=== PATIENT | male | born 1955 | race Two or more races ===

== ENCOUNTER 2024-02-15 20:57 | Inpatient (IN) | payer MEDICARE, MEDICAID, SELFPAY ==
[2024-02-15 21:17] VITALS: BMI 26.2
[2024-02-15 21:33] VITALS: BP 128/75; PULSE 90; RESP 18; TEMP 36.4; O2SAT 98
[2024-02-15 21:58] LABS: Basophils % (Auto) 1 % (0-2.5); Eosinophils # (Auto) 0.3 Thou/mm3 (0.0-0.5); Eosinophils % (Auto) 5 % (0-10); Hematocrit 23.5 % (41.0-53.0); Immature Granulocytes % (Auto) 0 % (0-0); Immature Granulocytes Auto 0.01 Thou/mm3 (0.00-0.00); Lymphocytes # (Auto) 1.5 Thou/mm3 (1.0-4.8); Lymphocytes % (Auto) 25 % (10-50); Mean Corpuscular Hemoglobin 31.3 pg (25.0-35.0); Mean Corpuscular Volume 92 fL (80-100); Monocytes # (Auto) 0.6 Thou/mm3 (0.0-0.8); Monocytes % (Auto) 10 % (0-12); Neutrophils # (Auto) 3.5 Thou/mm3 (1.8-7.7); Neutrophils % (Auto) 60 % (37-80); Nucleated Red Blood Cell % 0 /100 WBC (0); Platelet Count 143 Thou/mm3 (140-440); RDW Standard Deviation 44.1 fL (35.1-43.9); Red Blood Count 2.56 Miln/mm3 (4.50-5.90); White Blood Count 5.9 Thou/mm3 (3.8-10.6)
[2024-02-15 22:22] LABS: Alanine Aminotransferase 40 U/L (10-49); Albumin, Serum 3.6 gm/dL (3.4-4.8); Albumin/Globulin Ratio 1.5 (1.2-2.2); Alkaline Phosphatase 67 U/L (46-116); Anion Gap 4 (7-16); Aspartate Amino Transferase 35 U/L (0-34); BUN/Creatinine Ratio 23 Ratio (12-20); Bilirubin,Total 0.3 mg/dL (0.3-1.2); Blood Urea Nitrogen 28 mg/dL (9-23); Calcium 8.8 mg/dL (8.3-10.6); Calcium (Corrected) 9.1 mg/dL (8.5-10.1); Carbon Dioxide 25.9 mMol/L (20.0-31.0); Chloride 105 mMol/L (98-107); Creatinine (Component) 1.2 mg/dL (0.6-1.3); Globulin 2.4 gm/dL (2.3-3.5); Glucose 219 mg/dL (74-106); Magnesium 2.2 mg/dL (1.6-2.6); Osmolality,Calculated 282 (275-295); Potassium 4.4 mMol/L (3.4-5.1); Sodium 135 mMol/L (136-145); eGFR > 60 See Note
--- NOTE | 2024-02-15 23:16 | PC.NURSE ---
Dr. Mccormack made aware that the patient transferred from [facility] has safely arrived on [facility] Room 368.
[2024-02-15 23:52] VITALS: BP 123/70; PULSE 85; RESP 18; TEMP 36.3; O2SAT 98
[2024-02-16] VITALS (8 sets, daily range): BP systolic 96–148; BP diastolic 65–83; PULSE 82–89; RESP 15–98; TEMP 36.1–37.1; O2SAT 95–100
--- NOTE | 2024-02-16 05:21 | ESHP_ITS ---
Documentation for date of: 02/16/24 [facility] History of Present Illness History of present illness: Luis Enrique Montalvo is a 68-year-old male with a past medical history of insulin- dependent diabetes mellitus and hyperlipidemia who is transferred back from [facility] after falling from ladder. Patient scented to [facility] ED on 02/12 after falling from a 10 foot ladder while cutting a tree and was found to have multiple rib fractures and flail chest, but no evidence of pleural effusion or pneumothorax. Also noted to have right iliac bone with hemorrhage in the right iliac muscle and right scapular fracture. Decision was made to transfer patient to [facility], and upon their evaluation, ortho (Dr. King) decided to treat with closed management. They recommended 25% weightbearing on right lower extremity and follow-up in 4 weeks outpatient to evaluate healing. No acute events noted at [facility], hemoglobin was trended and remained stable and serial abdominal exams performed within normal limits. PMHx: as noted above Medications: Empagliflozin, ezetimibe, glimepiride, lisinopril, rosuvastatin SHx: denies smoking, alcohol, illicit drug use Review of Systems Review of Systems Systems Reviewed: All systems reviewed, normal except as documented Exam Vital Signs Temp Pulse Resp BP Pulse Ox O2 Del Method 96.9 F 86 18 96/65 100 Room Air 02/16/24 04:00 02/16/24 04:00 02/16/24 04:00 02/16/24 04:00 02/16/24 04:00 02/16/24 04:00 Narrative Exam General: AOx3, no acute distress, able to speak full sentences HEENT: NC/AT, mucous membranes moist, bilateral sclera anicteric Cardiovascular: regular rate and rhythm, S1/S2 present, no murmurs appreciated Pulmonary: clear to auscultation bilaterally, no rales/rhonchi/wheezes Abdominal: soft, non-tender, non-distended, no rebound/guarding, normal bowel sounds present Musculoskeletal: RUE in sling, abdominal binder noted Skin: warm and dry, intact, no rashes Neuro: CN II-XII intact, no focal deficits Results: Labs 02/17/24 04:53 02/16/24 08:32 Labs: Short CBC 02/15/24 Range/Units 21:36 WBC 5.9 D (3.8-10.6) Thou/mm3 Hgb 8.0 L D (13.5-16.0) g/dL Hct 23.5 L D (41.0-53.0) % Plt Count 143 D (140-440) Thou/mm3 BMP 02/15/24 21:36 Sodium 135 L Potassium 4.4 Chloride 105 Carbon Dioxide 25.9 BUN 28 H Creatinine 1.2 D Glucose 219 H D Calcium 8.8 Liver Function 02/15/24 Range/Units 21:36 Total Bilirubin 0.3 (0.3-1.2) mg/dL AST 35 H (0-34) U/L ALT 40 (10-49) U/L Alkaline Phosphatase 67 D (46-116) U/L Albumin 3.6 D (3.4-4.8) gm/dL Quality Measures Quality Measures VTE prophylaxis Advance care planning discussed with:: patient Medications Home Medications and Allergies Home Medications ?Medication ?Instructions ?Recorded ?Confirmed ?Type ezetimibe 10 mg tablet 10 mg PO DAILY 02/13/24 02/16/24 History lisinopril 2.5 mg tablet 2.5 mg PO DAILY 02/13/24 02/16/24 History Allergies Allergy/AdvReac Type Severity Reaction Status Date / Time No Known Allergies Allergy Verified 02/13/24 14:17 Visit Medications Oxycodone/Acetaminophen (Oxycodone/Apap 5/325 Tablet) 1 tab PO Q6HR PRN PRN Reason: PAIN SCALE 4-6 (Moderate Stop: 02/20/24 21:47 Oxycodone/Acetaminophen (Oxycodone/Apap 5/325 Tablet) 2 tab PO Q6HR PRN PRN Reason: PAIN SCALE 7-10 (Severe Stop: 02/20/24 21:48 Assessment & Plan Plan Luis Enrique Montalvo is a 68-year-old male with a past medical history of insulin- dependent diabetes mellitus and hyperlipidemia who is transferred back from [facility] and admitted for physical therapy evaluation and continuous management of rib, acetabular, and scapular fractures. #Closed right scapular fracture #Acetabular fracture #Closed fracture of iliac crest #Multiple fractured ribs #Fracture of lumbar spine ? Orthopedic surgery consulted, appreciate recommendations ? Physical therapy ? Pain management: Percocet 1 tablet for moderate pain, 2 tablets for severe pain #Type 2 diabetes mellitus, insulin-dependent ? SSI ? Home Lantus 20 units qAM ? Follow-up A1c in AM #Hyperlipidemia ? Rosuvastatin ? Follow-up lipid panel #Hypertension Blood pressure borderline, lisinopril deferred. Monitor vitals closely and resume as needed. Hospital management: Disposition: med surg Fluids: none Diet: carb consistent Lines: peripheral DVT prophylaxis: SCDs to avoid bleeding GI prophylaxis: PPI Guy: not indicated CODE STATUS: DNR ----- Plan discussed with attending physician Dr. Gilbert Mccormack MD PGY-1 Internal Medicine Attending Provider Attestation/Addendum I reviewed labs, imaging, EKG, home medications and prior available records. Face to face evaluation was performed by me. I have personally examined the patient and discussed assessment and plan with the IM team. I reviewed the resident note and agree with the plan with exceptions as below. 68-year-old male with history of diabetes type 2 who presented after a fall from ladder. He was found to have a closed fracture multiple ribs, closed pelvic fracture, fracture of lumbosacral spine. He was admitted to [facility] for trauma service. He was transferred to [facility] for care continuation. Fall from ladder/closed fracture of multiple ribs/closed pelvic fracture/fracture of unspecific parts of lumbosacral spine and pelvis: Patient has right scapular fracture, fracture of the right 2nd-6th ribs, retroperitoneal hematoma that is inferior to the right kidney, commuted right iliac fracture, pelvic floor musculature hemorrhage, right L2-L3 TP fracture, and anterior right acetabular fracture. No decision to operate was made. Consult PT. Continue pain management as needed. Insulin-dependent diabetes mellitus: Type II. Resume home insulin plus sliding scale. Monitor fingersticks.
[2024-02-16] MEDS: INSULIN GLARGINE (Lantus) 5 UNIT/0.05 ML (PER 5 UNITS) 20 UNIT SC (08:11)
[2024-02-16] MEDS: INSULIN LISPRO (AdmeLOG) 1 UNIT/0.01 ML UNIT SC ×4 (08:12→20:51)
[2024-02-16] MEDS: ACETAMINOPHEN 325 MG TABLET 650 MG PO (08:12)
[2024-02-16] MEDS: PANTOPRAZOLE 40 MG TABLET PO (08:13)
[2024-02-16] MEDS: SENNA TABLET 1 TAB PO (08:13)
--- NOTE | 2024-02-16 09:00 | PC.NURSE ---
pt does not currently have an IV, per Dr. Guy at bedside, it is OK to not place an IV on pt, pt to discharge later today.
[2024-02-16 09:13] LABS: Basophils % (Auto) 1 % (0-2.5); Eosinophils # (Auto) 0.3 Thou/mm3 (0.0-0.5); Eosinophils % (Auto) 6 % (0-10); Immature Granulocytes % (Auto) 0 % (0-0); Immature Granulocytes Auto 0.01 Thou/mm3 (0.00-0.00); Lymphocytes # (Auto) 1.3 Thou/mm3 (1.0-4.8); Lymphocytes % (Auto) 26 % (10-50); Mean Corpuscular HGB Conc 34.3 g/dl (31.0-37.0); Mean Corpuscular Hemoglobin 31.3 pg (25.0-35.0); Mean Corpuscular Volume 91 fL (80-100); Monocytes # (Auto) 0.5 Thou/mm3 (0.0-0.8); Monocytes % (Auto) 9 % (0-12); Neutrophils % (Auto) 58 % (37-80); Nucleated Red Blood Cell % 0 /100 WBC (0); Platelet Count 140 Thou/mm3 (140-440); RDW Standard Deviation 43.8 fL (35.1-43.9); Red Blood Count 2.52 Miln/mm3 (4.50-5.90); White Blood Count 5.1 Thou/mm3 (3.8-10.6)
[2024-02-16 09:42] LABS: Hemoglobin 7.9 g/dL (13.5-16.0)
[2024-02-16 10:10] LABS: Alanine Aminotransferase 36 U/L (10-49); Albumin, Serum 3.6 gm/dL (3.4-4.8); Albumin/Globulin Ratio 1.5 (1.2-2.2); Alkaline Phosphatase 65 U/L (46-116); Anion Gap 4 (7-16); Aspartate Amino Transferase 32 U/L (0-34); BUN/Creatinine Ratio 25 Ratio (12-20); Blood Urea Nitrogen 27 mg/dL (9-23); Calcium 8.8 mg/dL (8.3-10.6); Calcium (Corrected) 9.1 mg/dL (8.5-10.1); Carbon Dioxide 25.6 mMol/L (20.0-31.0); Chloride 105 mMol/L (98-107); Creatinine (Component) 1.1 mg/dL (0.6-1.3); Estimated Creatinine Clearance 56.7 mL/min (>60); Globulin 2.4 gm/dL (2.3-3.5); Glucose 263 mg/dL (74-106); Osmolality,Calculated 284 (275-295); Phosphorous 3.5 mg/dL (2.4-5.1); Potassium 4.6 mMol/L (3.4-5.1); Sodium 135 mMol/L (136-145); eGFR > 60 See Note
[2024-02-16] MEDS: oxyCODONE/APAP 5/325 TABLET 1 TAB PO ×3 (10:11→23:48)
--- NOTE | 2024-02-16 11:35 | ESPR_ITS ---
<Statement entered by Joanie Castano DO - 02/16/24 21:49> Senior attestation: Patient was examined and case was reviewed with team including attending physician. Note reviewed, I agree with most of its contents and agree with the patient's care. Will continue to monitor patient today to assess hemoglobin stability. Physical therapy team has evaluated patient, orthopedic surgeon Dr. Padilla has also been consulted. Anticipate discharge in 24-48 hours pending clinical stability. Joanie Castano DO PGY-3 Documentation for date of: 02/16/24 Subjective Subjective Interval history: No acute overnight events. Patient seen and examined at bedside. He explained that he fell a few days ago while he was trying to cut a branch from his trip. Upon falling, he landed on his right side of his body. He immediately came into the ED. ED transfer patient to [facility], for higher level care. He was answered back to [facility] for further management. Who presents with limited range of motion in the right lower extremities upper right upper extremity he is able to lift his right arm at 90 degrees, unable to lift beyond his shoulder level. Patient denies headache, fever, chills, chest pain, palpitation, shortness of breath, dizziness, nausea, vomiting, diarrhea, or constipation. Dr. King orthopedic surgeon recommended 25% weightbearing and physical therapy followed by follow-up outpatient setting in 4 weeks. Night team consulted orthopedic surgeon at [facility] who recommends to follow-up with orthopedic surgeon at [facility] trauma center recommendations. Continue Tylenol and Percocet as needed for pain, physical therapy and 25% weightbearing. Exam Vital Signs Temp Pulse Resp BP Pulse Ox O2 Del Method 97.9 F 86 15 132/69 H 95 Room Air 02/16/24 07:55 02/16/24 07:55 02/16/24 07:55 02/16/24 07:55 02/16/24 07:55 02/16/24 04:00 Narrative Exam General: Monegasque-speaking gentleman, in no acute distress, seen with sling on flexed right arm. HEENT: NC/AT, mucous membranes moist, bilateral sclera anicteric Cardiovascular: regular rate and rhythm, S1/S2 present, no murmurs appreciated Pulmonary: clear to auscultation bilaterally, no rales/rhonchi/wheezes Abdominal: soft, non-tender, non-distended, no rebound/guarding, normal bowel sounds present Musculoskeletal: RUE in sling, abdominal binder noted. Range of motion limited right lower extremity and right upper extremity. Skin: warm and dry, intact, no rashes Neuro: CN II-XII intact, no focal deficits Objective Labs 02/16/24 08:32 02/16/24 08:32 Labs: Laboratory Results - last 24 hr 02/15/24 02/16/24 21:36 08:32 WBC 5.9 D 5.1 RBC 2.56 L 2.52 L Hgb 8.0 L D 7.9 L Hct 23.5 L D 23.0 L MCV 92 91 MCH 31.3 31.3 MCHC 34.0 34.3 RDW Std Deviation 44.1 H 43.8 Plt Count 143 D 140 Neut % (Auto) 60 58 Lymph % (Auto) 25 26 Mcdonough % (Auto) 10 9 Eos % (Auto) 5 6 Baso % (Auto) 1 1 Neut # (Auto) 3.5 3.0 Lymph # (Auto) 1.5 1.3 Mcdonough # (Auto) 0.6 0.5 Eos # (Auto) 0.3 0.3 Baso # (Auto) 0.0 0.0 Immature Gran # (Auto) 0.01 H 0.01 H Absolute Nucleated RBC 0.00 0.00 Immature Gran % 0 0 Nucleated RBC % 0 0 Sodium 135 L 135 L Potassium 4.4 4.6 Chloride 105 105 Carbon Dioxide 25.9 25.6 Anion Gap 4 L 4 L BUN 28 H 27 H Creatinine 1.2 D 1.1 Estim Creat Clear Calc 52.0 L 56.7 L eGFR > 60 > 60 BUN/Creatinine Ratio 23 H 25 H Glucose 219 H D 263 H Calculated Osmolality 282 284 Calcium 8.8 8.8 Corrected Calcium 9.1 9.1 Phosphorus 3.5 Magnesium 2.2 2.0 Total Bilirubin 0.3 AST 35 H 32 ALT 40 36 Alkaline Phosphatase 67 D 65 Total Protein 6.0 6.0 Albumin 3.6 D 3.6 Globulin 2.4 2.4 Albumin/Globulin Ratio 1.5 1.5 Quality Measures Quality Measures VTE prophylaxis Advance care planning discussed with:: patient Assessment & Plan Assessment Current Active Medications: Generic Name Dose Route Start Last Admin Trade Name Freq PRN Reason Stop Dose Admin Acetaminophen 650 mg 02/16/24 05:50 11/22/24 08:12 Acetaminophen 325 Mg Tablet PO 03/17/24 05:25 650 mg Q6H PRN Administration PAIN 1-3 OR FEVER > 101 Atorvastatin Calcium 20 mg 02/16/24 21:00 Atorvastatin Calcium 10 Mg Tablet PO 03/17/24 20:59 HS GEETA Dextrose 25 ml 02/16/24 05:32 Dextrose 50%-Water Inj 50 Ml Syringe IV 03/17/24 05:31 Q15MIN PRN BG 50-70 responsive npo pt Dextrose 50 ml 02/16/24 05:32 Dextrose 50%-Water Inj 50 Ml Syringe IV 03/17/24 05:31 Q15MIN PRN BG <50 OR BG <70 & pt unresponsive Glucagon 1 mg 02/16/24 05:32 Glucagon Inj 1 Mg Vial IM Q15MIN PRN BG <70, and no IV access Insulin Glargine 20 unit 02/16/24 09:00 02/16/24 08:11 Insulin Glargine (Lantus) 5 Unit/0.05 Ml (Per 5 Units) SC 03/17/24 08:59 20 unit QAM GEETA Administration Insulin Human Lispro 0 unit 02/16/24 07:30 02/16/24 08:12 Insulin Lispro (Admelog) 1 Unit/0.01 Ml Unit SC 03/17/24 07:29 2 unit ACHS GEETA Administration Protocol Ondansetron HCl 4 mg 02/16/24 05:26 Ondansetron Inj 2 Mg/Ml Inj 2 Ml IV 03/17/24 05:25 Q6H PRN NAUSEA OR VOMITING Protocol Oxycodone/Acetaminophen 1 tab 02/15/24 21:48 02/16/24 10:11 Oxycodone/Apap 5/325 Tablet PO 02/20/24 21:47 1 tab Q6HR PRN Administration PAIN SCALE 4-6 (Moderate Oxycodone/Acetaminophen 2 tab 02/15/24 21:49 Oxycodone/Apap 5/325 Tablet PO 02/20/24 21:48 Q6HR PRN PAIN SCALE 7-10 (Severe Pantoprazole Sodium 40 mg 02/16/24 09:00 02/16/24 08:13 Pantoprazole 40 Mg Tablet PO 03/17/24 08:59 40 mg QDAY GEETA Administration Sennosides 1 tab 02/16/24 09:00 02/16/24 08:13 Senna Tablet PO 03/17/24 08:59 1 tab QDAY GEETA Administration Protocol Plan 68-year-old male with a past medical history of insulin-dependent diabetes mellitus (A1c 6.6%), hypertension, and hyperlipidemia presented to the hospital upon recent transfer from [facility] for management of multiple fractures. Patient presented in the ED of [facility] on 02/12 for accidental fall from a ladder while cutting a tree. CT chest/abdomen/pelvis showed acute fracture right scapula, acute fractures right second through sixth ribs, flail chest, without significant displacement, acute severely comminuted fractures right iliac bone with hemorrhage in the right iliac muscle and hemorrhage below the right kidney adjacent to the fractured iliac bone measuring 5 cm in dimension; acute fractures right second, third, lumbar transverse processes, acute fracture anterior and roof right acetabulum. He required level higher level of care and was transferred to [facility]. Dr. King-orthopedic surgeon- was consulted on 02/13 and recommended closed treatment with 25% weightbearing on the right lower extremity, physical therapy, and to return to the surgeon's clinic in 4 weeks for x-rays to evaluate further healing. On 02/15/2024, patient was transferred back to [facility] for further management. #Multiple fractures of ribs #Right side ribs 2-6 fracture #Right scapular fracture #Closed pelvic fracture #Anterior right acetabular fracture #Right L2-L3 fracture #Comminuted right iliac fracture #Retroperitoneal hematoma inferior to right kidney #Pelvic floor musculature hemorrhage Patient was found to have multiple fractures after accidental fall from a ladder. He endorsed that he was cutting a tree bark, and subsequently fell landing on his right side of the body. On recent [facility] ED presentation, CT chest/abdomen/pelvis showed acute fracture right scapula, acute fractures right second through sixth ribs, flail chest, without significant displacement, acute severely comminuted fractures right iliac bone with hemorrhage in the right iliac muscle and hemorrhage below the right kidney adjacent to the fractured iliac bone measuring 5 cm in dimension; acute fractures right second, third, lumbar transverse processes, acute fracture anterior and roof right acetabulum. Patient required transfer to [facility] for higher level care where he was managed by orthopedic surgeon with close management/no surgery recommended. At [facility], chest x-ray showed rib fractures right-sided without any consolidation. Chest CT showed lung nodular density 1.2 cm right upper lung lobe. Plan: ? Orthopedic surgery consulted, recommended to continue management recommendations by [facility]; 25% weightbearing on the right lower extremity, physical therapy, and to return to the surgeon's clinic in 4 weeks for x-rays to evaluate further healing. ? Physical therapy ? Pain management: Tylenol for mild pain, Percocet 1 tablet for moderate pain, and Percocet 2 tablets for severe pain #Acute normocytic anemia Patient is asymptomatic. He denies dizziness, shortness of breath, chest pain or palpitations. On 02/13/2024 previous ED visit hemoglobin was 12.4. Hemoglobin dropped to 8.0 on 02/15/2024. Repeat hemoglobin showed 7.9 on 02/16/2024. Patient was noted to have hemorrhage in the right iliac muscle and retroperitoneal hematoma to the right kidney on imaging. Plan: ?Will transfuse PRBC's if hemoglobin drops less than 7. ?No need for transfusion at this moment ?Follow-up CBC ?Monitor for signs of bleeding #Type 2 diabetes mellitus, insulin-dependent Chronic, uncontrolled Patient takes Lantus 20 units once daily regular at home. Glucose elevated greater than 200 on presentation. A1c 6.6% And: ? SSI ? Lantus 20 units qAM ? Follow-up A1c in AM #Hyperlipidemia Patient has a history of history of hyperlipidemia. Patient takes rosuvastatin 10 mg once daily at home. Plan: ? Follow-up lipid panel ?Atorvastatin 20 mg daily #Hypertension Chronic, controlled Blood pressure elevated at 148/83. Patient admits to taking the lisinopril. Plan: ?Resume home dose metoprolol 2.5 mg once daily Hospital management: Disposition: Admitted for management of multiple fractures. Pain management and therapy. Diet: carb consistent Lines: peripheral DVT prophylaxis: SCDs to avoid bleeding GI prophylaxis: PPI CODE STATUS: DNR Discussed case with my attending Dr. Guy and senior Eyad, PGY-3. Thank you, Kimberlee Pandya, PGY-2 Attending Provider Attestation/Addendum I have discussed and was present for the essential components of the history, physical examination, diagnosis, and treatment plan with the resident. I agree with the patient's care as documented by the resident and amended herein by me. Meliton Guy DO. Patient seen and evaluated this AM. Patient clinically doing well, transfer overnight for multiple fractures, vital signs stable, patient afebrile today, patient has no subjective complaints, worked with PT today who is recommending home health with PT. Slight drop in hemoglobin today to 8, down to 7.9 this afternoon. Was uptrending at [facility] prior to transfer hence will likely keep the patient 1 more day for monitoring to ensure there is no suspected internal bleeding after trauma. Will continue pain management and continue monitor closely Yulissa. Although this document has been carefully reviewed, there may still be some phonetic and other typographical errors. These errors are purely grammatical due to imperfections in the software program and should not be construed in any way to compromise the substance of the patient's medical care during this visit.
--- NOTE | 2024-02-16 12:39 | PC.SS ---
Addendum entered by Yvonne Brown 02/16/24 12:46: Bedside Commode Patient is physically incapable of utilizing regular toilet facilities because his or her diagnosis confines the patient to a single room. Patient is confined to a single level, and there is no toilet on that level; patient cannot access the toilet facilities in a timely manner due to lack of ambulation. Original Note: WheelChairs Patients diagnosis creates mobility limitations that significantly impairs ability to participate in the patient?s activities of daily living either in their entirety, or in a reasonable time frame in the home and the patient?s mobility limitations can not be sufficiently resolved with an appropriately fitted cane or walker. Also the use of a manual wheelchair will sufficiently improve patient?s ability to participate in the activities of daily living in the home and the patient is willing to use the wheelchair that is provided in the home. The patient has some one in the home that is available, willing and able to provide assistance with the wheelchair.
[2024-02-16] MEDS: Lisinopril 2.5 MG TABLET PO (12:43)
--- NOTE | 2024-02-16 12:52 | PC.SS ---
SS was informed by Xi from PT they are recommending a wheelchair and Home Health Services. SS met with pt and regarding DME. is requesting a commode. SS has sent DME order using [facility] for wheelchair and commode. states pt follows Angela Negron at the [facility] and last follow up was June or Jul, 2023. and pt do not preference for HH. SS has informed transfer nurse, Yunior who is requesting SS to contact PCP if they will sign HH orders. SS attempted to call Angela Negron at the [facility] but was only able to leave voicemail
--- NOTE | 2024-02-16 14:32 | ESPR_ITS ---
Subjective Subjective Narrative: Patient is a 68-year-old female with a Fall off a ladder. He has multiple injuries including multiple rib fractures and acetabular fractures. He originally went to a trauma center and was treated nonoperatively by the orthopedic surgeon. He was then transferred back here. I recommend that they follow the prior orthopedic surgeons recommendations of nonoperative treatment as they are a trauma center and he is a polytrauma. Exam Vital Signs Temp Pulse Resp BP Pulse Ox O2 Del Method 97.3 F 88 17 148/83 H 98 Room Air 02/16/24 11:48 02/16/24 12:43 02/16/24 11:48 02/16/24 12:43 02/16/24 11:48 02/16/24 11:48 Objective - Ortho Labs 02/16/24 08:32 02/16/24 08:32 Labs: Laboratory Results - last 24 hr 02/15/24 02/16/24 21:36 08:32 WBC 5.9 D 5.1 RBC 2.56 L 2.52 L Hgb 8.0 L D 7.9 L Hct 23.5 L D 23.0 L MCV 92 91 MCH 31.3 31.3 MCHC 34.0 34.3 RDW Std Deviation 44.1 H 43.8 Plt Count 143 D 140 Neut % (Auto) 60 58 Lymph % (Auto) 25 26 [place] % (Auto) 10 9 Eos % (Auto) 5 6 Baso % (Auto) 1 1 Neut # (Auto) 3.5 3.0 Lymph # (Auto) 1.5 1.3 [place] # (Auto) 0.6 0.5 Eos # (Auto) 0.3 0.3 Baso # (Auto) 0.0 0.0 Immature Gran # (Auto) 0.01 H 0.01 H Absolute Nucleated RBC 0.00 0.00 Immature Gran % 0 0 Nucleated RBC % 0 0 Sodium 135 L 135 L Potassium 4.4 4.6 Chloride 105 105 Carbon Dioxide 25.9 25.6 Anion Gap 4 L 4 L BUN 28 H 27 H Creatinine 1.2 D 1.1 Estim Creat Clear Calc 52.0 L 56.7 L eGFR > 60 > 60 BUN/Creatinine Ratio 23 H 25 H Glucose 219 H D 263 H Calculated Osmolality 282 284 Calcium 8.8 8.8 Corrected Calcium 9.1 9.1 Phosphorus 3.5 Magnesium 2.2 2.0 Total Bilirubin 0.3 AST 35 H 32 ALT 40 36 Alkaline Phosphatase 67 D 65 Total Protein 6.0 6.0 Albumin 3.6 D 3.6 Globulin 2.4 2.4 Albumin/Globulin Ratio 1.5 1.5
[2024-02-16 14:52] LABS: Bilirubin,Total 0.4 mg/dL (0.3-1.2)
[2024-02-16 15:01] LABS: Cardiac Risk Estimate 3.5 RATIO (4.0-6.7); Cholesterol 142 mg/dL (132-200); HDL Cholesterol 41 mg/dL (40-60); LDL Cholesterol,Calculated 69 mg/dL (0-130); Triglycerides 161 mg/dL (30-150)
--- NOTE | 2024-02-16 16:16 | PC.SS ---
SS called [facility] and scheduled pt an appointment for Feb 19, 2024Monday at 8:30am and they will follow pt for HH. SS has informed transfer nurse, Yunior. SS provided with [facility] with appointment information. agreed to take pt to his appointment on Monday, while SS was on the phone with [facility] scheduling patient's appointment. No preference for HH. SS provided verbal options for DME and [facility] with DME names. 's choice is [facility] due to being local. SS has informed Macy from [facility] and they will deliver walker.
--- NOTE | 2024-02-16 17:30 | PC.NURSE ---
per SS, pt is to discharge tomorrow 02/16, notified Dr. Castano of pt not having an IV, was OK to not place IV on pt.
--- NOTE | 2024-02-16 18:46 | PC.CM ---
Addendum entered by Irais Vinson RN 02/19/24 10:09: Patient accepted with [facility] and start of care date 02/18. Original Note: No preference of HH agency per SS notes. HH referral sent to [facility] on [facility]care. Awaiting responses. Pending dc summary, dc orders and start of care date.
[2024-02-16] MEDS: ATORVASTATIN CALCIUM 10 MG TABLET 20 MG PO (20:50)
[2024-02-17] VITALS: BP 110/61; PULSE 84; RESP 18; TEMP 36.6; O2SAT 98
[2024-02-17 04:00] VITALS: BP 117/64; PULSE 81; RESP 17; TEMP 36.8; O2SAT 96
[2024-02-17 05:49] LABS: Basophils % (Auto) 1 % (0-2.5); Eosinophils # (Auto) 0.6 Thou/mm3 (0.0-0.5); Eosinophils % (Auto) 9 % (0-10); Hematocrit 23.1 % (41.0-53.0); Immature Granulocytes % (Auto) 0 % (0-0); Immature Granulocytes Auto 0.01 Thou/mm3 (0.00-0.00); Lymphocytes # (Auto) 1.4 Thou/mm3 (1.0-4.8); Lymphocytes % (Auto) 23 % (10-50); Mean Corpuscular HGB Conc 33.8 g/dl (31.0-37.0); Mean Corpuscular Hemoglobin 30.6 pg (25.0-35.0); Mean Corpuscular Volume 91 fL (80-100); Monocytes # (Auto) 0.6 Thou/mm3 (0.0-0.8); Monocytes % (Auto) 10 % (0-12); Neutrophils # (Auto) 3.6 Thou/mm3 (1.8-7.7); Neutrophils % (Auto) 58 % (37-80); Nucleated Red Blood Cell % 0 /100 WBC (0); Platelet Count 132 Thou/mm3 (140-440); RDW Standard Deviation 43.8 fL (35.1-43.9); Red Blood Count 2.55 Miln/mm3 (4.50-5.90); White Blood Count 6.3 Thou/mm3 (3.8-10.6)
[2024-02-17 05:50] LABS: Hemoglobin 7.8 g/dL (13.5-16.0)
[2024-02-17 06:13] LABS: Glucose Estimated Average 128 mg/dL (80-131); Hemoglobin A1C 6.1 % Hgb (4.8-6.0)
[2024-02-17 06:25] LABS: INR 0.9 (0.9-1.3); Prothrombin Time 10.1 Seconds (9.0-12.2)
[2024-02-17 06:40] LABS: Thyroid Stimulating Hormone 1.31 uIU/mL (0.55-4.78)
[2024-02-17 06:56] LABS: Magnesium 2.1 mg/dL (1.6-2.6); Phosphorous 3.2 mg/dL (2.4-5.1)
[2024-02-17] MEDS: oxyCODONE/APAP 5/325 TABLET 1 TAB PO (07:46)
[2024-02-17 08:00] VITALS: BP 103/65; PULSE 83; RESP 17; TEMP 36.2; O2SAT 99
[2024-02-17] MEDS: INSULIN GLARGINE (Lantus) 5 UNIT/0.05 ML (PER 5 UNITS) 20 UNIT SC (08:26)
[2024-02-17 08:27] VITALS: BP 103/65; PULSE 83
[2024-02-17] MEDS: INSULIN LISPRO (AdmeLOG) 1 UNIT/0.01 ML UNIT SC (08:27)
[2024-02-17] MEDS: Lisinopril 2.5 MG TABLET PO (08:27)
[2024-02-17] MEDS: PANTOPRAZOLE 40 MG TABLET PO (08:28)
[2024-02-17] MEDS: SENNA TABLET 1 TAB PO (08:28)
[2024-02-17 08:34] VITALS: PULSE 83; RESP 18; RESP 97
[2024-02-17 09:56] VITALS: BMI 12.0
--- NOTE | 2024-02-17 10:48 | ESDS_ITS ---
<Statement entered by Joanie Castano DO - 02/17/24 15:11> Senior attestation: Patient was examined and case was reviewed with team including attending physician. Note reviewed, I agree with most of its contents and agree with the patient's care. Joanie Castano DO PGY-3 Planned Discharge Date 02/17/24 DS: Providers Provider Date of admission: 02/15/24 20:57 Primary care physician: Physician No Primary/Family Admitting Provider: North Guy DO Attending Provider on Admission: North Guy DO Consults: 02/16/24 05:30 Referral Physical Therapy Routine Comment: Physician Instructions: 02/16/24 05:31 Consult to Orthopedic Routine Comment: Consulting Provider: Michel Padilla Attending Provider on DC: Kimberlee Pandya MD Discharging Provider: Kimberlee Pandya MD DS: Diagnosis Problem List Completed Was Problem List Reviewed/Reconciled?: Yes Hospital Course Hospital Course Hospital course: #Multiple fractures of ribs #Right side ribs 2-6 fracture #Right scapular fracture #Closed pelvic fracture #Anterior right acetabular fracture #Right L2-L3 fracture #Comminuted right iliac fracture #Retroperitoneal hematoma inferior to right kidney #Pelvic floor musculature hemorrhage #Acute normocytic anemia #Type 2 diabetes mellitus, insulin-dependent #Hyperlipidemia #Hypertension A pleasant, swazi speaking 68-year-old male with a past medical history of insulin-dependent diabetes mellitus (A1c 6.6%), hypertension, and hyperlipidemia presented to the hospital upon recent transfer from [facility] [place] for management of multiple fractures found with hgb of 8.0. Patient presented in the ED of [facility] on 02/12 for accidental fall from a ladder while cutting a tree. CT chest/abdomen/pelvis showed acute fracture right scapula, acute fractures right second through sixth ribs, flail chest, without significant displacement, acute severely comminuted fractures right iliac bone with hemorrhage in the right iliac muscle and hemorrhage below the right kidney adjacent to the fractured iliac bone measuring 5 cm in dimension; acute fractures right second, third, lumbar transverse processes, acute fracture anterior and roof right acetabulum. He required level higher level of care and was transferred to [facility] trauma [place]. At [facility], chest x-ray showed rib fractures right-sided without any consolidation. Chest CT showed lung nodular density 1.2 cm right upper lung lobe. Dr. King-orthopedic surgeon- was consulted on 02/13 and recommended closed treatment with 25% weightbearing on the right lower extremity, physical therapy, and to return to the surgeon's clinic in 4 weeks for x-rays. On 02/15/2024, patient was transferred back to [facility] for further management. Physical therapy worked with patient during hospital course. Percocet given for pain. Hemoglobin was stable on repeat labs.He denies dizziness, shortness of breath, chest pain or palpitations. Patient will follow up with [facility] ([phone] appointment time is for February 19, 2024Monday at 8:30am He will continue home medications as previously prescribed, and follow up with Dr. King orthopedic in outpatient setting in 4 weeks. He will continue physical therapy and 25% weight bearing.25% weight bearing. He can follow recommendations from orthopedic surgeon. He will use Granville 5/325 mg every 6 hours as needed for pain. For further pain medications, he can reach out to his PCP. If symptoms worsen, he understands to return to the ED. Discussed case with my attending Dr. Pelletier and senior Eyad, PGY-3. Thank you, Kimberlee Pandya, PGY-2 Time Spent with Patient Time attestation: Total time spent providing and/or coordinating discharge services: Time spent: Greater than 30 minutes Home Health Home Health Referral Orders: 02/16/24 13:05 Home Health Referral Routine Reason For Exam: debility Home-Bound The patient must either because of illness or injury, need the aid of supportive devices such as crutches, canes, wheelchairs, and walkers; the use of special transportation; or the assistance of another person in order to leave their place of residence; OR have a condition such that leaving his or her home is medically contraindicated. In addition, the patient also meets the following criteria: patient is normally unable to leave the home and leaving home requires considerable taxing effort. Addendum to Home Health Certification Practitioner's Certification: I certify that the patient has been under my care in the hospital and the care of attending physician (see below). We had a lyeh-ws-[id number] encounter on (see date below). My clinical findings indicate that the patient is home bound per the above criteria and the Home Health Services noted in these orders are medically necessary. The primary reason for the [id number] encounter is related to the fact that the patient requires home health services. Date Certifying Qqya-fv-Gxpe Physician Encounter: 02/15/24 Physician's Name who will Assume Oversight for Services: Angela Negron [facility] [employer] Physician's Phone No.who will Assume Oversight for Service: [employer] - Community Resources: No PT to Evaluate: Yes PT to evaluate and provide a treatmnet plan to increase patient's mobility and strength. Wound Care: No IV Therapy: No Discontinue PICC Line Once Treatment Complete: No RN Safety Evaluation: Yes RN to evaluate and create a plan of care that will produce positive outcomes. Palliative Treatment: No Palliative treatment and evaluate the need for hospice. Home Health Aide - Personal Care: No Home Health Aide to assist with any ADL's. Exam Vital Signs Temp Pulse Resp BP Pulse Ox O2 Del Method 97.1 F 83 18 103/65 99 Room Air 02/17/24 08:00 02/17/24 08:34 02/17/24 08:34 02/17/24 08:27 02/17/24 08:00 02/17/24 08:00 Narrative Exam General: Singaporean-speaking gentleman, in no acute distress, seen with sling on flexed right arm. HEENT: NC/AT, mucous membranes moist, bilateral sclera anicteric Cardiovascular: regular rate and rhythm, S1/S2 present, no murmurs appreciated Pulmonary: clear to auscultation bilaterally, no rales/rhonchi/wheezes Abdominal: soft, non-tender, non-distended, no rebound/guarding, normal bowel so unds present Musculoskeletal: RUE in sling, abdominal binder noted. Range of motion limited right lower extremity and right upper extremity. Skin: warm and dry, intact, no rashes Neuro: CN II-XII intact, no focal deficits Discharge Plan Plan Patient Disposition: Home w/HOME HEALTH Care Plan Goals: [facility] ([phone] appointment time is for February 19, 2024Monday at 8:30am. Please take Granville 5/325 mg every 6 hours as needed for pain. For further pain medications, please reach out to your PCP. Please continue home medications as previously prescribed. Please follow up with Dr. Fernando kelley in outpatient setting in 4 weeks. Continue physical therapy and 25% weight bearing.25% weight bearing. Resume recommendations from orthopedic surgeon. If symptoms worsen, please return to the ED. Prescriptions/Referrals Prescriptions/Med Rec: New hydrocodone-acetaminophen 5-325 mg tablet 1 tab PO Q6H MDD 4000mg PRN (Reason: pain) 3 Days Qty: 12 0RF Continued (DME) pen needle, diabetic [Sure-Fine Pen [place]] 31 gauge x 5/16 needle See Rx Instructions .Route Qty: 100 0RF Rx Instructions: As directed (DME) Blood Glucose Test Strip See Rx Instructions .Route Qty: 50 6RF Rx Instructions: check glucose twice a day (DME) blood-glucose meter [Blood Glucose Monitoring] Kit See Rx Instructions .Route Qty: 1 0RF Rx Instructions: check glucose twice a day (DME) Comfort Touch Ult Thin Lancets 31 gauge misc See Rx Instructions .Route Qty: 100 0RF Rx Instructions: check blood sugar twice a day Jardiance 25 mg tablet 25 mg PO QDAY Qty: 90 0RF glimepiride 4 mg tablet 4 mg PO QAM Qty: 90 0RF Rx Instructions: administer with breakfast rosuvastatin 10 mg tablet 10 mg PO HS Qty: 90 0RF Rx Instructions: Directions in [place]an insulin glargine [Basaglar KwikPen U-100 Insulin] 100 unit/mL (3 mL) insulin pen 20 unit subcut QAM Qty: 15 1RF lisinopril 2.5 mg tablet 2.5 mg PO DAILY Patient Comments: TAKE 1 TABLET BY MOUTH ONCE DAILY ezetimibe 10 mg tablet 10 mg PO DAILY Patient Comments: TAKE 1 TABLET BY MOUTH ONCE DAILY Referrals: No Primary/Family,Physician [Primary Care Provider] - Patient/Caregiver Discharge Instructions Other Discharge Activity Instructions:: [facility] ([phone] appointment time is for February 19, 2024Monday at 8:30am Please continue home medications as previously prescribed. Please follow up with Dr. Fernando kelley in outpatient setting in 4 weeks. Continue physical therapy and 25% weight bearing.25% weight bearing. Resume recommendations from orthopedic surgeon. If symptoms worsen, please return to the ED. Print Language: Singaporean Stand Alone Forms: [facility]da Award Info., Patient Portal Info Letter Discharge Order Discharge Orders: Discharge (Routine); Ordered 02/17/24 Ordered By: Ted (HOSPITALIST) Liyah Quality Discharge Quality Measures VTE prophylaxis Attestestation Attestation Face to face evaluation was performed by me. I have personally seen and examined the patient. I discussed the assessment and plan with the entire medicine team. I reviewed available medical records, imaging studies, laboratory results. I agree with the above subjective data, objective findings, assessment and plan except as corrected by me or noted below Patient was initially admitted to [facility] on 02/12 with multiple fractures after accidental fall, was transferred to [facility], orthopedic surgery evaluated the patient recommended conservative management and follow-up with him in 4 weeks for x-rays. Patient was transferred back to [facility], was monitored closely, hemoglobin seems to be stable. Plan is to discharge home with some as needed hydrocodone/acetaminophen and follow-up with PCP and orthopedic surgery after discharge #Multiple fractures of ribs #Right side ribs 2-6 fracture #Right scapular fracture #Closed pelvic fracture #Anterior right acetabular fracture #Right L2-L3 fracture #Comminuted right iliac fracture #Retroperitoneal hematoma inferior to right kidney #Pelvic floor musculature hemorrhage
[2024-02-17 12:00] VITALS: BP 104/72; PULSE 80; RESP 17; TEMP 36.1; O2SAT 98
== END 2024-02-17 12:47 | disposition home health service (06) | DRG 963 ==
PROVIDERS: Student in an Organized Health Care Education/Training Program; Admitting Provider Student in an Organized Health Care Education/Training Program; Visit Provider Student in an Organized Health Care Education/Training Program
DX: S22.5XXA Flail chest, initial encounter for closed fracture (principal); K68.3 Retroperitoneal hematoma; S32.401A Unspecified fracture of right acetabulum, initial encounter for closed fracture; S32.029A Unspecified fracture of second lumbar vertebra, initial encounter for closed fracture; S32.039A Unspecified fracture of third lumbar vertebra, initial encounter for closed fracture; S32.301A Unspecified fracture of right ilium, initial encounter for closed fracture; S42.101A Fracture of unspecified part of scapula, right shoulder, initial encounter for closed fracture; E11.9 Type 2 diabetes mellitus without complications; S36.892A Contusion of other intra-abdominal organs, initial encounter; I10 Essential (primary) hypertension; D64.9 Anemia, unspecified; S37.011A Minor contusion of right kidney, initial encounter; E78.5 Hyperlipidemia, unspecified; Z66 Do not resuscitate; Z79.4 Long term (current) use of insulin; W11.XXXA Fall on and from ladder, initial encounter; Y93.89 Activity, other specified; Z79.899 Other long term (current) drug therapy
CPT/HCPCS: 36415; 70450; 71250; 72125; 74176; 80053; 80061; 81001; 83036; 83735; 84100; 84443; 85025; 85610; 85730; 96374; 96375; 97162; 99285; J1815; J2270; J2405; J7030; A9270

== ENCOUNTER → 2024-02-19 | Outpatient (BNVA) | payer MEDICARE, MEDICAID, SELFPAY | END | disposition home or self-care (01) | PROVIDERS: PCP Nurse Practitioner Family; Referring Provider Nurse Practitioner Family; Visit Provider Nurse Practitioner Family | DX: Z71.2 Person consulting for explanation of examination or test findings (principal); S32.309A Unspecified fracture of unspecified ilium, initial encounter for closed fracture; S32.009A Unspecified fracture of unspecified lumbar vertebra, initial encounter for closed fracture; S22.39XA Fracture of one rib, unspecified side, initial encounter for closed fracture; S32.409A Unspecified fracture of unspecified acetabulum, initial encounter for closed fracture; S42.109A Fracture of unspecified part of scapula, unspecified shoulder, initial encounter for closed fracture; Z76.89 Persons encountering health services in other specified circumstances; R94.5 Abnormal results of liver function studies; E11.9 Type 2 diabetes mellitus without complications; E78.5 Hyperlipidemia, unspecified; Z23 Encounter for immunization; Z91.199 Patient's noncompliance with other medical treatment and regimen due to unspecified reason; Z12.5 Encounter for screening for malignant neoplasm of prostate | CPT/HCPCS: 90471; 90686; 99214 ==

== ENCOUNTER → 2024-02-26 | Outpatient (BNVA) | payer MEDICARE, MEDICAID, SELFPAY | END | disposition home or self-care (01) | PROVIDERS: PCP Nurse Practitioner Family; Referring Provider Nurse Practitioner Family; Visit Provider Nurse Practitioner Family | DX: Z71.2 Person consulting for explanation of examination or test findings (principal); S32.309A Unspecified fracture of unspecified ilium, initial encounter for closed fracture; S32.009A Unspecified fracture of unspecified lumbar vertebra, initial encounter for closed fracture; S22.39XA Fracture of one rib, unspecified side, initial encounter for closed fracture; S32.409A Unspecified fracture of unspecified acetabulum, initial encounter for closed fracture; S42.109A Fracture of unspecified part of scapula, unspecified shoulder, initial encounter for closed fracture; Z76.89 Persons encountering health services in other specified circumstances; Z91.199 Patient's noncompliance with other medical treatment and regimen due to unspecified reason | CPT/HCPCS: 99215 ==

== ENCOUNTER → 2024-03-06 | Outpatient (BNVA) | payer MEDICARE, MEDICAID, SELFPAY | END | disposition home or self-care (01) | PROVIDERS: PCP Nurse Practitioner Family; Referring Provider Nurse Practitioner Family; Visit Provider Nurse Practitioner Family | DX: D50.9 Iron deficiency anemia, unspecified (principal); Z71.2 Person consulting for explanation of examination or test findings; E11.9 Type 2 diabetes mellitus without complications; R94.5 Abnormal results of liver function studies; Z79.4 Long term (current) use of insulin; E78.5 Hyperlipidemia, unspecified; Z12.11 Encounter for screening for malignant neoplasm of colon | CPT/HCPCS: 99212; G0463 ==

== ENCOUNTER → 2024-04-03 | Outpatient (BNVA) | payer MEDICARE, MEDICAID, SELFPAY | END | disposition home or self-care (01) | PROVIDERS: PCP Nurse Practitioner Family; Referring Provider Nurse Practitioner Family; Visit Provider Nurse Practitioner Family | DX: D50.9 Iron deficiency anemia, unspecified (principal) | CPT/HCPCS: 99214 ==

== ENCOUNTER → 2024-04-05 | Outpatient (BNVA) | payer MEDICARE, MEDICAID, SELFPAY | END | disposition home or self-care (01) | PROVIDERS: PCP Nurse Practitioner Family; Referring Provider Nurse Practitioner Family; Visit Provider Urology | DX: N40.1 Benign prostatic hyperplasia with lower urinary tract symptoms (principal); N13.8 Other obstructive and reflux uropathy; R97.20 Elevated prostate specific antigen [PSA]; N40.2 Nodular prostate without lower urinary tract symptoms; E11.9 Type 2 diabetes mellitus without complications; E66.9 Obesity, unspecified; Z68.24 Body mass index [BMI] 24.0-24.9, adult; F17.210 Nicotine dependence, cigarettes, uncomplicated | CPT/HCPCS: 81003; 99212; G0463 ==

== ENCOUNTER → 2024-06-05 | Outpatient (BNVA) | payer MEDICARE, MEDICAID, SELFPAY | END | disposition home or self-care (01) | PROVIDERS: PCP Nurse Practitioner Family; Referring Provider Nurse Practitioner Family; Visit Provider Nurse Practitioner Family | DX: Z71.2 Person consulting for explanation of examination or test findings (principal); S32.391A Other fracture of right ilium, initial encounter for closed fracture; E11.9 Type 2 diabetes mellitus without complications; Z79.4 Long term (current) use of insulin; R97.20 Elevated prostate specific antigen [PSA]; Z91.199 Patient's noncompliance with other medical treatment and regimen due to unspecified reason; S32.401A Unspecified fracture of right acetabulum, initial encounter for closed fracture; S22.31XA Fracture of one rib, right side, initial encounter for closed fracture; S32.009A Unspecified fracture of unspecified lumbar vertebra, initial encounter for closed fracture; E78.5 Hyperlipidemia, unspecified; D50.9 Iron deficiency anemia, unspecified | CPT/HCPCS: 99213; 99214 ==

== ENCOUNTER → 2024-06-19 | Outpatient (BNVA) | payer MEDICARE, MEDICAID, SELFPAY | END | disposition home or self-care (01) | PROVIDERS: PCP Nurse Practitioner Family; Referring Provider Nurse Practitioner Family; Visit Provider Nurse Practitioner Family | DX: Z00.01 Encounter for general adult medical examination with abnormal findings (principal); E11.9 Type 2 diabetes mellitus without complications; Z79.4 Long term (current) use of insulin; R97.20 Elevated prostate specific antigen [PSA]; Z91.199 Patient's noncompliance with other medical treatment and regimen due to unspecified reason; E78.5 Hyperlipidemia, unspecified; Z11.3 Encounter for screening for infections with a predominantly sexual mode of transmission; Z12.11 Encounter for screening for malignant neoplasm of colon; E66.3 Overweight; Z68.25 Body mass index [BMI] 25.0-25.9, adult | CPT/HCPCS: 93005; 99215 ==

== ENCOUNTER → 2024-06-28 | Outpatient (BNVA) | payer MEDICARE, MEDICAID, SELFPAY | END | disposition home or self-care (01) | PROVIDERS: PCP Internal Medicine; Referring Provider Internal Medicine; Visit Provider Internal Medicine | DX: E11.9 Type 2 diabetes mellitus without complications (principal); Z79.4 Long term (current) use of insulin; E78.5 Hyperlipidemia, unspecified; I10 Essential (primary) hypertension; R97.20 Elevated prostate specific antigen [PSA] | CPT/HCPCS: 99203 ==

== ENCOUNTER → 2024-07-18 | Outpatient (BNVA) | payer MEDICARE, MEDICAID, SELFPAY | END | disposition home or self-care (01) | PROVIDERS: PCP Nurse Practitioner Family; Referring Provider Nurse Practitioner Family; Visit Provider Nurse Practitioner Family | DX: E11.9 Type 2 diabetes mellitus without complications (principal); Z79.4 Long term (current) use of insulin | CPT/HCPCS: 99213 ==

== ENCOUNTER → 2024-07-26 | Outpatient (BNVA) | payer MEDICARE, MEDICAID, SELFPAY | END | disposition home or self-care (01) | PROVIDERS: PCP Internal Medicine; Referring Provider Internal Medicine; Visit Provider Internal Medicine | DX: E11.8 Type 2 diabetes mellitus with unspecified complications (principal); Z79.4 Long term (current) use of insulin; E78.5 Hyperlipidemia, unspecified; I10 Essential (primary) hypertension; R97.20 Elevated prostate specific antigen [PSA] | CPT/HCPCS: 99214 ==

== ENCOUNTER → 2024-09-19 | Outpatient (BNVA) | payer MEDICARE, MEDICAID, SELFPAY | END | disposition home or self-care (01) | PROVIDERS: PCP Nurse Practitioner Family; Referring Provider Nurse Practitioner Family; Visit Provider Nurse Practitioner Family | DX: Z71.2 Person consulting for explanation of examination or test findings (principal); E78.5 Hyperlipidemia, unspecified; E11.9 Type 2 diabetes mellitus without complications; Z79.4 Long term (current) use of insulin; Z23 Encounter for immunization | CPT/HCPCS: 90471; 90677; 90715; 99215; G0009 ==

== ENCOUNTER → 2024-11-08 | Outpatient (BNVA) | payer MEDICARE, MEDICAID, SELFPAY | END | disposition home or self-care (01) | PROVIDERS: PCP Internal Medicine; Referring Provider Internal Medicine; Visit Provider Internal Medicine | DX: N17.9 Acute kidney failure, unspecified (principal); E11.65 Type 2 diabetes mellitus with hyperglycemia; Z79.4 Long term (current) use of insulin | CPT/HCPCS: 99203 ==

== ENCOUNTER → 2024-12-23 | Outpatient (BNVA) | payer MEDICARE, MEDICAID, SELFPAY | END | disposition home or self-care (01) | PROVIDERS: PCP Nurse Practitioner Family; Referring Provider Nurse Practitioner Family; Visit Provider Nurse Practitioner Family | DX: E11.9 Type 2 diabetes mellitus without complications (principal); Z79.4 Long term (current) use of insulin | CPT/HCPCS: 82948; 83036; 99215 ==

== ENCOUNTER → 2025-01-10 | Outpatient (BNVA) | payer MEDICARE, MEDICAID, SELFPAY | END | disposition home or self-care (01) | PROVIDERS: PCP Internal Medicine; Referring Provider Internal Medicine; Visit Provider Internal Medicine | DX: E11.65 Type 2 diabetes mellitus with hyperglycemia (principal); Z79.4 Long term (current) use of insulin | CPT/HCPCS: 99213 ==

== ENCOUNTER → 2025-01-20 | Outpatient (BNVA) | payer MEDICARE, MEDICAID, SELFPAY | END | disposition home or self-care (01) | PROVIDERS: PCP Nurse Practitioner Family; Referring Provider Nurse Practitioner Family; Visit Provider Nurse Practitioner Family | DX: E11.65 Type 2 diabetes mellitus with hyperglycemia (principal) | CPT/HCPCS: 82948; 99213 ==

== ENCOUNTER → 2025-02-14 | Outpatient (BNVA) | payer MEDICARE, MEDICAID, SELFPAY | END | disposition home or self-care (01) | PROVIDERS: PCP Nurse Practitioner Family; Referring Provider Nurse Practitioner Family; Visit Provider Nurse Practitioner Family | DX: Z76.0 Encounter for issue of repeat prescription (principal); E11.22 Type 2 diabetes mellitus with diabetic chronic kidney disease; N18.31 Chronic kidney disease, stage 3a; N17.9 Acute kidney failure, unspecified; E11.65 Type 2 diabetes mellitus with hyperglycemia | CPT/HCPCS: 99212; G0463 ==